=== PATIENT | male | born 1990 | race African-American/Black ===

== ENCOUNTER 2018-06-23 20:53 | Inpatient (IN) ==
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
[2018-06-23 21:23] LABS: Baso % (Auto) 0.2 % (0.0-2.0); Eos % (Auto) 0.2 % (0.0-4.0); Hematocrit 43.8 % (39.0-51.0); Hemoglobin 14.6 gm/dL (13.0-17.0); Lymph # (Auto) 2.7 th/mm3 (1.0-4.8); Lymph % (Auto) 20.9 % (9.0-44.0); Mean Corpuscular HGB Conc 33.3 % (32.0-36.0); Mean Corpuscular Hemoglobin 28.3 pg (27.0-34.0); Mean Corpuscular Volume 85.1 fL (80.0-100.0); Mono # (Auto) 0.6 th/mm3 (0.0-0.9); Mono % (Auto) 4.5 % (0.0-8.0); Neut # (Auto) 9.7 th/mm3 (1.8-7.7); Neut % (Auto) 74.2 % (16.0-70.0); Platelet Count 147 th/mm3 (150-450); Red Blood Count 5.15 mil/mm3 (4.50-5.90); Red Cell Distribution Width 14.4 % (11.6-17.2); White Blood Count 13.1 th/mm3 (4.0-11.0)
[2018-06-23] MEDS ORDERED: Diphtheria/Tetanus/Pertussis Vaccine Inj 0.5 ML Syringe IM ONE (21:30)
[2018-06-23] MEDS ORDERED: Morphine Inj 4 MG/ML Vial IV.PUSH SCH (21:30)
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
[2018-06-23 21:46] LABS: Activated Partial Thrombo Time 28.3 sec (23.4-31.7); INR 1.1 Ratio; Prothrombin Time 11.3 sec (9.8-11.6)
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
[2018-06-23 22:16] LABS: Anion Gap 8 meq/L (5-15); Blood Urea Nitrogen 11 mg/dL (7-18); Calcium 8.8 mg/dL (8.5-10.1); Carbon Dioxide 27.1 meq/L (21.0-32.0); Chloride 105 meq/L (98-107); Glomerular Filtration Rate 55 mL/min (>89); Glucose,Random 149 mg/dL (74-106); Sodium 140 meq/L (136-145)
[2018-06-23] MEDS ORDERED: HYDROmorphone PF Inj 2 MG/ML Vial IV.PUSH ONE (23:17)
[2018-06-24] MEDS: Sod Chloride 0.9% Inj 1,000 ML IV.SIG SCH ×2 (00:05→01:12)
[2018-06-24] MEDS: Morphine Inj 4 MG/ML Vial IV.PUSH PRN ×5 (01:03→23:42)
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
[2018-06-24 05:36] LABS: Hematocrit 41.8 % (39.0-51.0); Hemoglobin 13.2 gm/dL (13.0-17.0)
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
--- NOTE | 2018-06-24 08:36 | ECG ---
Date Performed: 06/24/2018 Time Performed: 04:36:22 PTAGE: 89 years EKG: Sinus rhythm . Extensive ST elevation - consider Early repolarization, pericarditis Borderline ECG NO PREVIOUS TRACING DOCTOR: Karel Romero Interpretating Date/Time 06/24/2018 08:34:30
[2018-06-24] MEDS ORDERED: Acetaminophen 325 MG Tablet PO PRN (11:19)
[2018-06-24] MEDS: Sod Chloride 0.9% Inj 1,000 ML IV.CONT SCH ×2 (12:32→22:09)
[2018-06-24] MEDS: Lidocaine 5% Patch T-DERMAL SCH (12:32)
[2018-06-24] MEDS ORDERED: Potassium Chloride 25 MEQ Effervescent Tablet PO ONE (14:35)
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
[2018-06-24] MEDS: Enoxaparin Inj 40 MG/0.4 ML Syringe SQ SCH ×2 (16:55→16:59)
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
[2018-06-24 17:57] LABS: Hematocrit 35.9 % (39.0-51.0); Hemoglobin 12.2 gm/dL (13.0-17.0)
[2018-06-24] MEDS: Senna/Docusate Sodium 8.6/50 MG Tablet PO SCH (20:46)
[2018-06-24] MEDS: Famotidine 20 MG Tablet PO SCH (20:46)
[2018-06-25] MEDS: Morphine Inj 4 MG/ML Vial IV.PUSH PRN ×5 (02:50→17:20)
[2018-06-25] MEDS: Chlorhexidine Gluconate 2% 1 Pack (2 Cloths) TOPICAL SCH (03:39)
[2018-06-25] MEDS ORDERED: Chlorhexidine Gluconate 2% 1 Pack (2 Cloths) TOPICAL PRN (04:00)
--- NOTE | 2018-06-25 05:28 | XR ---
EXAM DATE: 06/25/2018 5:21 AM EST AGE/SEX: 27 years / Male INDICATIONS: Multiple right sided rib fractures. Atelectasis. CLINICAL DATA: This is the patient's subsequent encounter. Patient reports that signs and symptoms h ave been present for 3 days and indicates a pain score of Nonresponsive. MEDICAL/SURGICAL HISTORY: Non-responsive. Non-responsive. COMPARISON: [facility] [place]ST 1V SINGLE AP, 06/24/2018. . FINDINGS: Portable AP view of the chest demonstrates a normal-sized cardiac silhouette. Lungs are underinflated and there is right lower lung zone pleural-parenchymal opacity. Left lung demonstrates no definite a bnormality. There is no pneumothorax seen. Right rib fractures remain visualized. CONCLUSION: Stable chest x-ray with right basilar opacity likely representing pleural effusion with associated at electasis and/or consolidation. No pneumothorax is visualized. Electronically signed by: Omar Jones MD Board Certified Radiologist 06/25/2018 5:26 AM EST
[2018-06-25 05:58] LABS: Baso % (Auto) 0.2 % (0.0-2.0); Eos % (Auto) 0.4 % (0.0-4.0); Hematocrit 34.4 % (39.0-51.0); Hemoglobin 11.3 gm/dL (13.0-17.0); Lymph # (Auto) 1.1 th/mm3 (1.0-4.8); Lymph % (Auto) 11.5 % (9.0-44.0); Mean Corpuscular HGB Conc 32.9 % (32.0-36.0); Mean Corpuscular Hemoglobin 28.1 pg (27.0-34.0); Mean Corpuscular Volume 85.5 fL (80.0-100.0); Mean Platelet Volume 9.8 fL (7.0-11.0); Mono # (Auto) 0.9 th/mm3 (0.0-0.9); Mono % (Auto) 9.3 % (0.0-8.0); Neut # (Auto) 7.3 th/mm3 (1.8-7.7); Neut % (Auto) 78.6 % (16.0-70.0); Platelet Count 93 th/mm3 (150-450); Red Blood Count 4.02 mil/mm3 (4.50-5.90); Red Cell Distribution Width 14.1 % (11.6-17.2); White Blood Count 9.3 th/mm3 (4.0-11.0)
[2018-06-25 06:29] LABS: Alanine Aminotransferase 170 U/L (12-78); Alkaline Phosphatase 52 U/L (45-117); Anion Gap 4 meq/L (5-15); Aspartate Aminotransferase 130 U/L (15-37); Blood Urea Nitrogen 7 mg/dL (7-18); Calcium 8.5 mg/dL (8.5-10.1); Chloride 106 meq/L (98-107); Glomerular Filtration Rate Greater Than 89 mL/min (>89); Glucose,Random 92 mg/dL (74-106); Potassium 3.9 meq/L (3.5-5.1); Sodium 141 meq/L (136-145); Total Protein 6.5 g/dL (6.4-8.2)
[2018-06-25] MEDS: Sod Chloride 0.9% Inj 1,000 ML IV.CONT SCH (08:13)
[2018-06-25] MEDS: Senna/Docusate Sodium 8.6/50 MG Tablet PO SCH ×2 (08:14→20:12)
[2018-06-25] MEDS: Enoxaparin Inj 40 MG/0.4 ML Syringe SQ SCH (08:14)
[2018-06-25] MEDS: Famotidine 20 MG Tablet PO SCH ×2 (08:14→20:12)
[2018-06-25] MEDS: Lidocaine 5% Patch T-DERMAL SCH (08:15)
[2018-06-25] MEDS ORDERED: Sodium Chloride 0.9% 2 ML Flush PRN IV.FLUSH (11:11)
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
[2018-06-25] MEDS: Sodium Chloride 0.9% 2 ML Flush BID IV.FLUSH SCH (20:13)
[2018-06-26] MEDS: Chlorhexidine Gluconate 2% 1 Pack (2 Cloths) TOPICAL SCH (03:39)
[2018-06-26] MEDS: Morphine Inj 4 MG/ML Vial IV.PUSH PRN ×3 (05:20→12:48)
[2018-06-26 06:24] LABS: Baso % (Auto) 0.3 % (0.0-2.0); Eos % (Auto) 0.2 % (0.0-4.0); Hematocrit 32.4 % (39.0-51.0); Hemoglobin 10.7 gm/dL (13.0-17.0); Lymph # (Auto) 0.5 th/mm3 (1.0-4.8); Lymph % (Auto) 5.1 % (9.0-44.0); Mean Corpuscular HGB Conc 33.1 % (32.0-36.0); Mean Corpuscular Hemoglobin 28.5 pg (27.0-34.0); Mean Corpuscular Volume 86.2 fL (80.0-100.0); Mono # (Auto) 0.8 th/mm3 (0.0-0.9); Mono % (Auto) 8.2 % (0.0-8.0); Neut # (Auto) 8.9 th/mm3 (1.8-7.7); Neut % (Auto) 86.2 % (16.0-70.0); Platelet Count 81 th/mm3 (150-450); Red Blood Count 3.76 mil/mm3 (4.50-5.90); White Blood Count 10.3 th/mm3 (4.0-11.0)
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
[2018-06-26 06:43] LABS: Albumin 2.9 g/dL (3.4-5.0); Anion Gap 5 meq/L (5-15); Aspartate Aminotransferase 73 U/L (15-37); Blood Urea Nitrogen 6 mg/dL (7-18); Calcium 8.3 mg/dL (8.5-10.1); Chloride 101 meq/L (98-107); Glomerular Filtration Rate Greater Than 89 mL/min (>89); Glucose,Random 96 mg/dL (74-106); Potassium 3.5 meq/L (3.5-5.1); Sodium 138 meq/L (136-145)
[2018-06-26 06:46] LABS: Alanine Aminotransferase 114 U/L (12-78); Alkaline Phosphatase 54 U/L (45-117); Total Protein 6.7 g/dL (6.4-8.2)
[2018-06-26] MEDS: Famotidine 20 MG Tablet PO SCH ×2 (09:00→20:24)
[2018-06-26] MEDS: Sodium Chloride 0.9% 2 ML Flush BID IV.FLUSH SCH ×2 (09:00→20:25)
[2018-06-26] MEDS: Senna/Docusate Sodium 8.6/50 MG Tablet PO SCH ×2 (09:00→20:25)
[2018-06-26] MEDS: Lidocaine 5% Patch T-DERMAL SCH (09:00)
[2018-06-26] MEDS: Enoxaparin Inj 40 MG/0.4 ML Syringe SQ SCH (09:00)
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
[2018-06-26] MEDS: Ketorolac Inj 30 MG/ML (IVP) Vial IV.PUSH SCH ×2 (13:47→20:24)
[2018-06-27] MEDS: Ketorolac Inj 30 MG/ML (IVP) Vial IV.PUSH SCH ×4 (00:35→18:27)
[2018-06-27] MEDS: Chlorhexidine Gluconate 2% 1 Pack (2 Cloths) TOPICAL SCH (05:40)
[2018-06-27] MEDS ORDERED: Bisacodyl 10 MG Supp RECTAL ONE (06:33)
[2018-06-27] MEDS: Senna/Docusate Sodium 8.6/50 MG Tablet PO SCH ×2 (08:08→20:42)
[2018-06-27] MEDS: Enoxaparin Inj 40 MG/0.4 ML Syringe SQ SCH (08:08)
[2018-06-27] MEDS: Famotidine 20 MG Tablet PO SCH ×2 (08:08→20:41)
[2018-06-27] MEDS: Lidocaine 5% Patch T-DERMAL SCH (08:09)
[2018-06-27] MEDS: Sodium Chloride 0.9% 2 ML Flush BID IV.FLUSH SCH ×2 (08:09→20:42)
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
[2018-06-28] MEDS: Ketorolac Inj 30 MG/ML (IVP) Vial IV.PUSH SCH ×4 (00:11→17:59)
--- NOTE | 2018-06-28 06:24 | P.DCO ---
- Physical Therapy Order: Evaluate and treat, Improve ambulation, Strength and gait training - Home Health Nursing Order: Medical education, Signs/symptoms of disease process, Medication education-adverse effect, Nursing assessment with vital signs - Case Management Consult Case Management Consult-Home Health: Yes - Certification I have seen patient Jose Villegas on 06/28/18. My clinical findings support the need for the requested home health care services because: Limited mobility due to disease progression, Deconditioned with increased weakness, Limited ability to care for self, High risk of falls, Infection with risk of complications I certify that my clinical findings support that this patient is homebound because: Post-op weakness, Unsteady gait/balance, Unsafe to leave home unassisted, Non- ambulatory: confined to bed or chair, Unable to use public transportation
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
[2018-06-28] MEDS: Enoxaparin Inj 40 MG/0.4 ML Syringe SQ SCH (08:22)
[2018-06-28] MEDS: Senna/Docusate Sodium 8.6/50 MG Tablet PO SCH ×2 (08:22→20:00)
[2018-06-28] MEDS: Famotidine 20 MG Tablet PO SCH ×2 (08:22→20:00)
[2018-06-28] MEDS: Lidocaine 5% Patch T-DERMAL SCH (08:23)
[2018-06-28] MEDS: Sodium Chloride 0.9% 2 ML Flush BID IV.FLUSH SCH ×2 (08:27→20:01)
[2018-06-28] MEDS ORDERED: Melatonin 5 MG Tablet PO PRN (09:12)
[2018-06-29] MEDS: Ketorolac Inj 30 MG/ML (IVP) Vial IV.PUSH SCH ×4 (02:36→12:35)
[2018-06-29] MEDS: Famotidine 20 MG Tablet PO SCH (08:29)
[2018-06-29] MEDS: Lidocaine 5% Patch T-DERMAL SCH (08:29)
[2018-06-29] MEDS: Senna/Docusate Sodium 8.6/50 MG Tablet PO SCH (08:29)
[2018-06-29] MEDS: Enoxaparin Inj 40 MG/0.4 ML Syringe SQ SCH (08:29)
[2018-06-29] MEDS: Sodium Chloride 0.9% 2 ML Flush BID IV.FLUSH SCH (08:30)
[2018-06-29 08:31] VITALS: RESP 18
[2018-06-29 10:48] VITALS: O2SAT 100
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
[2018-06-29 15:19] VITALS: BP 108/70; PULSE 99; TEMP 98.9
== END 2018-06-29 18:20 | disposition home health service (06) | DRG 963 ==
LOC: NEPI 20:53 → EDBD 22:29 → NEDA 22:29 → N03 06-24 01:38 → N06 06-25 17:52
PROVIDERS: ADMIT Surgery Trauma Surgery; ATTEND Surgery Trauma Surgery
CPT/HCPCS: 70450; 71010; 71045; 71260; 72125; 72170; 74177; 80048; 80053; 80307; 85014; 85018; 85025; 85610; 85730; 86850; 86900; 86901; 87641; 90715; 93005; 94150; 97110; 97116; 97163; 97166; 97530; 97535; J1170; J1650; J1885; J2060; J2270; J2405; J7030; J7120; Q9967